=== PATIENT | male | born 1975 | race Caucasian/White ===

== ENCOUNTER → 2020-12-31 | Day surgery (SDC) | payer BC ==
[~2020-12-31] MED LIST: Acetaminophen 500 MG TAB ONE; BAMLANIVIMAB 700 MG, ETESEVIMAB 700 MG/20 ML 1,400 MG in Sodium Chloride 0.9% 250 ML 25... IVPB SCH; diphenhydrAMINE 50 MG/ML VIAL ONE
== END ==
LOC: CSHSDC 09:39
PROVIDERS: ATTEND Registered Nurse Emergency
DX: U07.1 COVID-19 (principal); Z23 Encounter for immunization
CPT/HCPCS: 96365; 96374; 99283; J1200; J7050; Q0245; U0003; U0005

== ENCOUNTER 2021-04-17 01:20 | Observation (INO) | payer BC ==
[2021-04-17 01:59] LABS: #Basophils 0.1 10x3/uL (0.0-0.2); #Eosinphils 0.3 10x3/uL (0.0-0.5); #Monocytes 0.7 10x3/uL (0.0-1.1); #Neutrophils 3.5 10x3/uL (1.5-8.4); %Basophils 0.7 % (0.0-2.0); %Eosinophils 3.3 % (0.0-6.0); %Lymphocytes 40.2 % (18.0-47.0); %Monocytes 8.8 % (0.0-10.0); %Neutrophils 46.5 % (40.0-75.0); Hemoglobin 14.6 g/dL (13.5-17.5); Mean Corpuscular HGB CONC 33.8 g/dL (32.0-36.0); Mean Corpuscular Hemoglobin 29.7 pg (27.0-33.0); Mean Corpuscular Volume 87.8 fl (81.2-95.1); Mean Platelet Volume 11.4 fl (7.4-10.4); Platelet Count 222 10x3/uL (150-450); RBC Distribution Width 14.8 % (11.5-14.5); Red Blood Cell (RBC) Count 4.92 10x6/uL (4.32-5.72); White Blood Cell (WBC) Count 7.5 10x3/uL (3.5-10.5)
[2021-04-17] MEDS ORDERED: Aspirin 325 MG TAB ONE (02:00)
[2021-04-17 02:13] LABS: ALT (SGPT) 129 U/L (8-55); AST (SGOT) 59 U/L (5-34); Albumin 4.3 g/dL (3.5-5.0); Alkaline Phosphatase 65 U/L (40-110); Anion Gap 13 mmol/L (10-20); BUN (Urea Nitrogen) 12 mg/dL (8.9-20.6); Bilirubin, Total 0.5 mg/dL (0.2-1.2); CK (CPK) 134 U/L (30-200); Calc. Creatinine Clearance 0 mL/min (70-130); Calcium 9.3 mg/dL (7.8-10.44); Carbon Dioxide 24 mmol/L (22-29); Chloride 108 mmol/L (98-107); Globulin 2.8 g/dL (2.4-3.5); Glucose 99 mg/dL (70-105); Potassium 3.7 mmol/L (3.5-5.1); Protein, Total 7.1 g/dL (6.0-8.3); Sodium 141 mmol/L (136-145)
[2021-04-17] MEDS ORDERED: HYDROcodone/Acetaminophen 5/325 mg Tablet PO PRN (03:59)
[2021-04-17] MEDS ORDERED: Ondansetron PF 4 MG/2 ML Vial IVP PRN (03:59)
[2021-04-17] MEDS ORDERED: Acetaminophen 325 MG TAB PO PRN (03:59)
[2021-04-17] MEDS ORDERED: Senokot S 8.6-50 MG TAB PO PRN (03:59)
[2021-04-17] MEDS ORDERED: Zolpidem Tartrate 5 MG TAB PO PRN (03:59)
[2021-04-17] MEDS ORDERED: Nitroglycerin 0.4 MG TAB (25 Tab Bottle) SL PRN (03:59)
[2021-04-17] MEDS ORDERED: Calcium Carbonate 500 MG ChewTAB PO PRN (03:59)
[2021-04-17] MEDS ORDERED: Colchicine 0.6 MG TAB PO PRN (04:04)
[2021-04-17] MEDS ORDERED: Famotidine/PF 20 mg/2ml Vial SLOW IVP SCH (04:15)
[2021-04-17 06:12] VITALS: BMI 30.7
[2021-04-17 06:14] LABS: Troponin I Less than 0.010 ng/mL (< 0.028)
[2021-04-17] MEDS ORDERED: TICAGRELOR 90 MG TABLET PO SCH (09:00)
[2021-04-17] MEDS ORDERED: Fish Oil 1,000 MG CAP PO SCH (09:00)
[2021-04-17] MEDS ORDERED: Enoxaparin Sodium 40 MG/0.4 ML SYRINGE SC SCH (09:00)
[2021-04-17] MEDS ORDERED: Ezetimibe 10 MG TAB PO SCH (09:00)
[2021-04-17] MEDS ORDERED: Metoprolol Tartrate 25 MG TAB PO SCH (09:00)
[2021-04-17] MEDS ORDERED: Allopurinol 100 MG TAB PO SCH (09:00)
[2021-04-17] MEDS ORDERED: Lisinopril 2.5 MG TAB PO SCH (09:00)
[2021-04-17 10:23] LABS: ALT (SGPT) 123 U/L (8-55); AST (SGOT) 57 U/L (5-34); Albumin 4.1 g/dL (3.5-5.0); Alkaline Phosphatase 60 U/L (40-110); Anion Gap 16 mmol/L (10-20); BUN (Urea Nitrogen) 14 mg/dL (8.9-20.6); Bilirubin, Total 0.5 mg/dL (0.2-1.2); Calc. Creatinine Clearance 110 mL/min (70-130); Carbon Dioxide 21 mmol/L (22-29); Cardiac Risk 6.5 (Less than 4.5); Chloride 107 mmol/L (98-107); Cholesterol 202 mg/dl (< 200 Desired); Glucose 124 mg/dL (70-105); HDL Cholesterol 31 mg/dL (>60 Neg Risk); Potassium 3.7 mmol/L (3.5-5.1); Protein, Total 7.1 g/dL (6.0-8.3); Sodium 140 mmol/L (136-145); Triglycerides 611 mg/dL (Less than 150)
[2021-04-17 10:27] LABS: LDL Cholesterol, Calculated 49 mg/dL
[2021-04-17] MEDS ORDERED: FLU VACC QS2021-22(6MOS UP)/PF 60 MCG/0.5 ML SYRINGE IM ONE (11:00)
[2021-04-17 16:37] VITALS: BP 108/66; TEMP 97.5
[2021-04-17] MEDS ORDERED: Famotidine 20 MG TAB PO SCH (21:00)
[2021-04-18] MEDS ORDERED: Aspirin Chewable 81 MG TAB PO SCH (09:00)
== END 2021-04-17 20:07 | disposition home or self-care (01) ==
LOC: CSHERS 01:20 → INTOOBSV 01:21 → CSHERHOLD 01:21 → CSHTELE 01:22
PROVIDERS: ADMIT Student in an Organized Health Care Education/Training Program; ATTEND Nurse Practitioner Family
DX: R07.89 Other chest pain (principal); I25.2 Old myocardial infarction; R74.01 Elevation of levels of liver transaminase levels; K76.0 Fatty (change of) liver, not elsewhere classified; E78.5 Hyperlipidemia, unspecified; I13.10 Hypertensive heart and chronic kidney disease without heart failure, with stage 1 through stage 4 chronic kidney disease, or unspecified chronic kidney disease; N18.2 Chronic kidney disease, stage 2 (mild); M10.9 Gout, unspecified; Z86.16 Personal history of COVID-19; Z79.82 Long term (current) use of aspirin; Z79.02 Long term (current) use of antithrombotics/antiplatelets; Z79.899 Other long term (current) drug therapy; I45.10 Unspecified right bundle-branch block
CPT/HCPCS: 36415; 71045; 76705; 80053; 80061; 82550; 83690; 84484; 85025; 93005; 93010; 96372; 96374; G0378; J1650; S0028

== ENCOUNTER 2022-02-12 08:22 | Observation (INO) | payer BC ==
[2022-02-12 09:21] LABS: #Monocytes 0.9 10x3/uL (0.0-1.1); %Basophils 0.1 % (0.0-2.0); %Eosinophils 0.1 % (0.0-6.0); %Lymphocytes 14.5 % (18.0-47.0); %Monocytes 5.7 % (0.0-10.0); %Neutrophils 78.9 % (40.0-75.0); Hemoglobin 16.1 g/dL (13.5-17.5); Mean Corpuscular HGB CONC 34.3 g/dL (32.0-36.0); Mean Corpuscular Hemoglobin 30.3 pg (27.0-33.0); Mean Corpuscular Volume 88.5 fl (81.2-95.1); Platelet Count 272 10x3/uL (150-450); RBC Distribution Width 13.2 % (11.5-14.5); Red Blood Cell (RBC) Count 5.31 10x6/uL (4.32-5.72); White Blood Cell (WBC) Count 15.2 10x3/uL (3.5-10.5)
[2022-02-12 09:25] LABS: ALT (SGPT) 67 U/L (8-55); AST (SGOT) 26 U/L (5-34); Albumin 4.4 g/dL (3.5-5.0); Alkaline Phosphatase 70 U/L (40-110); Anion Gap 17 mmol/L (10-20); BUN (Urea Nitrogen) 18 mg/dL (8.9-20.6); Bilirubin, Total 0.7 mg/dL (0.2-1.2); Calc. Creatinine Clearance 0 mL/min (70-130); Calcium 9.3 mg/dL (7.8-10.44); Carbon Dioxide 20 mmol/L (22-29); Chloride 105 mmol/L (98-107); Estimated GFR 105; Globulin 3.4 g/dL (2.4-3.5); Glucose 158 mg/dL (70-105); Potassium 4.7 mmol/L (3.5-5.1); Protein, Total 7.8 g/dL (6.0-8.3); Sodium 137 mmol/L (136-145)
[2022-02-12 11:23] VITALS: BMI 32.1
[2022-02-12 11:38] LABS: Magnesium 2.5 mg/dL (1.6-2.6); Phosphorus 2.7 mg/dL (2.3-4.7)
[2022-02-12 13:50] LABS: SARS-CoV-2 NAA Rapid Test Not Detected (NotDetected)
[2022-02-12 15:53] LABS: Troponin I Less than 0.010 ng/mL (< 0.028)
[2022-02-12 20:30] LABS: HBCM Index 0.07 S/CO (0-0.79); HBSAg Index 0.31 S/CO (0-0.99); Hep A IgM AB Non-Reactive (NonReactive); Hep A IgM S/CO 0.16 S/CO (0-0.79); Hep B Surf Ag Non-Reactive S/CO (NonReactive); Hep C IgG Ab Non-Reactive (NonReactive); Hep C Index 0.14 S/CO (0-0.79); Hepatitis B Core IgM Abs Non-Reactive (NonReactive)
[2022-02-12] MEDS: Famotidine 20 MG TAB PO SCH (20:53)
[2022-02-13 05:04] LABS: ALT (SGPT) 51 U/L (8-55); AST (SGOT) 16 U/L (5-34); Albumin 4.1 g/dL (3.5-5.0); Alkaline Phosphatase 60 U/L (40-110); Anion Gap 16 mmol/L (10-20); BUN (Urea Nitrogen) 20 mg/dL (8.9-20.6); Bilirubin, Total 0.5 mg/dL (0.2-1.2); Calc. Creatinine Clearance 144 mL/min (70-130); Calcium 9.3 mg/dL (7.8-10.44); Carbon Dioxide 21 mmol/L (22-29); Chloride 105 mmol/L (98-107); Estimated GFR 103; Globulin 3.4 g/dL (2.4-3.5); Glucose 124 mg/dL (70-105); Potassium 4.3 mmol/L (3.5-5.1); Protein, Total 7.5 g/dL (6.0-8.3); Sodium 138 mmol/L (136-145)
[2022-02-13 05:18] LABS: #Neutrophils 14.5 10x3/uL (1.5-8.4); %Basophils 0.2 % (0.0-2.0); %Eosinophils 0.1 % (0.0-6.0); %Lymphocytes 11.8 % (18.0-47.0); %Monocytes 5.4 % (0.0-10.0); %Neutrophils 81.5 % (40.0-75.0); Hemoglobin 15.8 g/dL (13.5-17.5); Mean Corpuscular HGB CONC 33.8 g/dL (32.0-36.0); Mean Corpuscular Hemoglobin 29.7 pg (27.0-33.0); Mean Corpuscular Volume 87.8 fl (81.2-95.1); Mean Platelet Volume 11.3 fl (7.4-10.4); Platelet Count 315 10x3/uL (150-450); RBC Distribution Width 13.5 % (11.5-14.5); Red Blood Cell (RBC) Count 5.32 10x6/uL (4.32-5.72); White Blood Cell (WBC) Count 17.7 10x3/uL (3.5-10.5)
[2022-02-13] MEDS: TICAGRELOR 90 MG TABLET PO SCH ×2 (08:59→20:18)
[2022-02-13] MEDS: Ezetimibe 10 MG TAB PO SCH (08:59)
[2022-02-13] MEDS: Lisinopril 20 MG TAB PO SCH (08:59)
[2022-02-13] MEDS: Aspirin 81 mg Enteric Coated Tablet PO SCH (08:59)
[2022-02-13] MEDS: Famotidine 20 MG TAB PO SCH ×2 (08:59→20:18)
[2022-02-13] MEDS: Allopurinol 300 MG TAB PO SCH (08:59)
[2022-02-13] MEDS: Colchicine 0.6 MG TAB PO SCH ×2 (09:10→20:18)
[2022-02-13] MEDS: Icosapent Ethyl 1 GM CAPSULE PO SCH ×2 (09:10→20:18)
[2022-02-13 11:12] LABS: CRP (Inflammatory) 4.03 mg/dL (= or < 0.5); Uric Acid 5.9 mg/dL (3.5-7.2)
[2022-02-13 11:34] LABS: Bilirubin Neg (Negative); Blood, Urine Negative (Negative); Clarity Clear (Clear); Glucose, Urine (Dipstick) Normal (Negative); Ketone, Urine Negative (Negative); Leukocyte Negative (Negative); Nitrite Negative (Negative); Protein, Urine (Dipstick) 15 mg/dl (Neg-Trace)
[2022-02-13 11:37] LABS: Urine Culture Reflex No No
[2022-02-13 11:42] LABS: Bacteria/HPF Rare-Few HPF (None Seen); RBC/HPF 0-3 HPF (0-3); Squamous Epithelial 0-3 HPF (0-3); WBC/HPF 0-3 HPF (0-3)
[2022-02-13] MEDS ORDERED: Lidocaine 1% 20 ML MDV SC SCH (11:45)
[2022-02-13 15:58] LABS: BF Color Yellow; Body Fluid Source Synovial Fluid; Clarity Hazy (Clear); Tube # EDTA
[2022-02-13 16:00] LABS: BF Segmented Neutrophils 86 %; Cell Count Non Hematic 12 %; Lymphocytes 2 %
[2022-02-14 06:07] LABS: #Basophils 0.1 10x3/uL (0.0-0.2); #Neutrophils 12.5 10x3/uL (1.5-8.4); %Basophils 0.4 % (0.0-2.0); %Eosinophils 0.2 % (0.0-6.0); %Lymphocytes 16.9 % (18.0-47.0); %Monocytes 6.1 % (0.0-10.0); %Neutrophils 75.2 % (40.0-75.0); Mean Corpuscular HGB CONC 34.3 g/dL (32.0-36.0); Mean Corpuscular Hemoglobin 30.4 pg (27.0-33.0); Mean Corpuscular Volume 88.8 fl (81.2-95.1); Mean Platelet Volume 10.8 fl (7.4-10.4); Platelet Count 348 10x3/uL (150-450); RBC Distribution Width 13.5 % (11.5-14.5); Red Blood Cell (RBC) Count 5.26 10x6/uL (4.32-5.72); White Blood Cell (WBC) Count 16.6 10x3/uL (3.5-10.5)
[2022-02-14 06:24] LABS: ALT (SGPT) 85 U/L (8-55); AST (SGOT) 44 U/L (5-34); Albumin 3.9 g/dL (3.5-5.0); Alkaline Phosphatase 65 U/L (40-110); Anion Gap 15 mmol/L (10-20); BUN (Urea Nitrogen) 25 mg/dL (8.9-20.6); Bilirubin, Total 0.4 mg/dL (0.2-1.2); Calc. Creatinine Clearance 137 mL/min (70-130); Calcium 8.9 mg/dL (7.8-10.44); Carbon Dioxide 22 mmol/L (22-29); Chloride 105 mmol/L (98-107); Estimated GFR 96; Globulin 3.1 g/dL (2.4-3.5); Glucose 125 mg/dL (70-105); Magnesium 2.2 mg/dL (1.6-2.6); Potassium 4.1 mmol/L (3.5-5.1); Sodium 138 mmol/L (136-145)
[2022-02-14 07:56] LABS: CRP (Inflammatory) 1.54 mg/dL (= or < 0.5)
[2022-02-14] MEDS: Colchicine 0.6 MG TAB PO SCH (08:33)
[2022-02-14] MEDS: Ezetimibe 10 MG TAB PO SCH (08:33)
[2022-02-14] MEDS: Allopurinol 300 MG TAB PO SCH (08:33)
[2022-02-14] MEDS: Icosapent Ethyl 1 GM CAPSULE PO SCH (08:34)
[2022-02-14] MEDS: Lisinopril 20 MG TAB PO SCH (08:34)
[2022-02-14] MEDS: Famotidine 20 MG TAB PO SCH (08:34)
[2022-02-14] MEDS: Aspirin 81 mg Enteric Coated Tablet PO SCH (08:35)
[2022-02-14] MEDS: TICAGRELOR 90 MG TABLET PO SCH (08:35)
[2022-02-14 12:03] VITALS: BP 125/76; TEMP 97.7
== END 2022-02-14 14:43 | disposition home or self-care (01) ==
LOC: CSHERS 08:22 → CSHTELE 11:14
PROVIDERS: ADMIT Family Medicine; ATTEND Family Medicine
DX: M25.461 Effusion, right knee (principal); R07.89 Other chest pain; M25.561 Pain in right knee; M10.9 Gout, unspecified; M79.10 Myalgia, unspecified site; R50.9 Fever, unspecified; D72.829 Elevated white blood cell count, unspecified; R53.1 Weakness; I10 Essential (primary) hypertension; E78.5 Hyperlipidemia, unspecified; I25.10 Atherosclerotic heart disease of native coronary artery without angina pectoris; I25.2 Old myocardial infarction; Z20.822 Contact with and (suspected) exposure to COVID-19; Z79.82 Long term (current) use of aspirin; Z79.899 Other long term (current) drug therapy; Z98.890 Other specified postprocedural states
CPT/HCPCS: 36415; 71045; 80053; 80074; 81001; 83036; 83735; 83880; 84100; 84145; 84443; 84484; 84550; 85025; 85652; 86140; 87040; 87070; 87205; 87633; 89051; 89060; 93005; 93306; G0378

== ENCOUNTER 2022-04-15 08:55 | Emergency (ER) | payer BC ==
[2022-04-15] MEDS ORDERED: predniSONE 20 MG TAB ONE (09:34)
== END 2022-04-15 10:53 | disposition home or self-care (01) ==
LOC: CSHERS 08:55
DX: M10.9 Gout, unspecified (principal); M17.11 Unilateral primary osteoarthritis, right knee; I10 Essential (primary) hypertension; I25.10 Atherosclerotic heart disease of native coronary artery without angina pectoris
CPT/HCPCS: J7512

== ENCOUNTER 2022-05-25 05:33 | Emergency (ER) | payer BC ==
[2022-05-25 07:11] LABS: ALT (SGPT) 118 U/L (8-55); AST (SGOT) 92 U/L (5-34); Alkaline Phosphatase 75 U/L (40-110); Anion Gap 18 mmol/L (10-20); BUN (Urea Nitrogen) 9 mg/dL (8.9-20.6); Bilirubin, Total 0.8 mg/dL (0.2-1.2); Calc. Creatinine Clearance 0 mL/min (70-130); Calcium 9.4 mg/dL (7.8-10.44); Carbon Dioxide 18 mmol/L (22-29); Chloride 106 mmol/L (98-107); Estimated GFR 90; Globulin 3.4 g/dL (2.4-3.5); Glucose 114 mg/dL (70-105); Protein, Total 7.4 g/dL (6.0-8.3); Sodium 138 mmol/L (136-145)
[2022-05-25 07:31] LABS: #Basophils 0.1 10x3/uL (0.0-0.2); #Eosinphils 0.3 10x3/uL (0.0-0.5); #Monocytes 0.7 10x3/uL (0.0-1.1); #Neutrophils 6.7 10x3/uL (1.5-8.4); %Eosinophils 2.8 % (0.0-6.0); %Lymphocytes 15.6 % (18.0-47.0); %Monocytes 7.9 % (0.0-10.0); Hemoglobin 16.4 g/dL (13.5-17.5); Large Platelets SLIGHT; Mean Corpuscular HGB CONC 34.9 g/dL (32.0-36.0); Mean Corpuscular Hemoglobin 30.2 pg (27.0-33.0); Mean Corpuscular Volume 86.6 fl (81.2-95.1); Mean Platelet Volume 11.1 fl (7.4-10.4); Platelet Count 206 10x3/uL (150-450); Platelet Morphology Comment Appears Adequate; RBC Distribution Width 13.8 % (11.5-14.5); Red Blood Cell (RBC) Count 5.43 10x6/uL (4.32-5.72); White Blood Cell (WBC) Count 9.3 10x3/uL (3.5-10.5)
== END 2022-05-25 07:49 | disposition home or self-care (01) ==
LOC: CSHERS 05:33
DX: J06.9 Acute upper respiratory infection, unspecified (principal); G47.30 Sleep apnea, unspecified; I25.10 Atherosclerotic heart disease of native coronary artery without angina pectoris; I10 Essential (primary) hypertension; E78.5 Hyperlipidemia, unspecified
CPT/HCPCS: 36415; 71045; 80053; 84484; 85025; 93005

== ENCOUNTER 2022-07-28 11:44 | Emergency (ER) | payer BC ==
[2022-07-28] MEDS ORDERED: Dexamethasone 10 MG/ML VIAL ONE (12:31)
[2022-07-28] MEDS ORDERED: Colchicine 0.6 MG TAB ONE (12:33)
[2022-07-28] MEDS ORDERED: Naproxen 500 MG TAB ONE (12:33)
== END 2022-07-28 12:32 | disposition home or self-care (01) ==
LOC: CSHERS 11:44
DX: M10.9 Gout, unspecified (principal); I25.10 Atherosclerotic heart disease of native coronary artery without angina pectoris; E78.5 Hyperlipidemia, unspecified; I10 Essential (primary) hypertension
CPT/HCPCS: 96372; 99283; J1100

== ENCOUNTER 2022-10-28 23:56 | Emergency (ER) | payer BC ==
[2022-10-29] MEDS ORDERED: Aspirin Chewable 81 MG TAB ONE (00:33)
[2022-10-29 00:43] LABS: #Basophils 0.1 10x3/uL (0.0-0.2); #Eosinphils 0.3 10x3/uL (0.0-0.5); #Monocytes 0.6 10x3/uL (0.0-1.1); #Neutrophils 4.4 10x3/uL (1.5-8.4); %Basophils 0.6 % (0.0-2.0); %Eosinophils 3.5 % (0.0-6.0); %Lymphocytes 36.3 % (18.0-47.0); %Monocytes 7.5 % (0.0-10.0); Hemoglobin 17.3 g/dL (13.5-17.5); Mean Corpuscular HGB CONC 34.7 g/dL (32.0-36.0); Mean Corpuscular Hemoglobin 30.4 pg (27.0-33.0); Mean Corpuscular Volume 87.7 fl (81.2-95.1); Mean Platelet Volume 11.7 fl (7.4-10.4); Platelet Count 207 10x3/uL (150-450); RBC Distribution Width 13.6 % (11.5-14.5); Red Blood Cell (RBC) Count 5.69 10x6/uL (4.32-5.72); White Blood Cell (WBC) Count 8.5 10x3/uL (3.5-10.5)
[2022-10-29 00:53] LABS: ALT (SGPT) 200 U/L (8-55); AST (SGOT) 115 U/L (5-34); Albumin 4.3 g/dL (3.5-5.0); Alkaline Phosphatase 75 U/L (40-110); Anion Gap 15 mmol/L (10-20); BUN (Urea Nitrogen) 10 mg/dL (8.9-20.6); Bilirubin, Total 0.6 mg/dL (0.2-1.2); Calc. Creatinine Clearance 0 mL/min (70-130); Calcium 9.9 mg/dL (7.8-10.44); Carbon Dioxide 24 mmol/L (22-29); Chloride 105 mmol/L (98-107); Estimated GFR 98; Globulin 3.1 g/dL (2.4-3.5); Glucose 98 mg/dL (70-105); Potassium 4.1 mmol/L (3.5-5.1); Protein, Total 7.4 g/dL (6.0-8.3); Sodium 140 mmol/L (136-145)
== END 2022-10-29 02:08 | disposition home or self-care (01) ==
LOC: CSHERS 23:56
DX: H66.91 Otitis media, unspecified, right ear (principal); I10 Essential (primary) hypertension; I25.10 Atherosclerotic heart disease of native coronary artery without angina pectoris; E78.5 Hyperlipidemia, unspecified; Z79.82 Long term (current) use of aspirin; Z79.899 Other long term (current) drug therapy
CPT/HCPCS: 71045; 80053; 83735; 84484; 85025; 93005

== ENCOUNTER 2023-01-22 10:26 | Emergency (ER) | payer BC ==
[2023-01-22] MEDS ORDERED: Naproxen 500 MG TAB ONE (12:17)
[2023-01-22] MEDS ORDERED: Dexamethasone 4 MG TAB ONE (12:17)
== END 2023-01-22 12:52 | disposition home or self-care (01) ==
LOC: CSHERS 10:26
DX: M10.9 Gout, unspecified (principal); E78.5 Hyperlipidemia, unspecified; I10 Essential (primary) hypertension; I25.10 Atherosclerotic heart disease of native coronary artery without angina pectoris
CPT/HCPCS: 99283; J8540

== ENCOUNTER 2023-11-10 07:39 | Day surgery (SDC) | payer BC ==
[2023-11-06 14:54] VITALS: BMI 32.7
[2023-11-10] MEDS ORDERED: Labetalol HCl 100 MG/20 ML VIAL ONE (08:31)
[2023-11-10] MEDS ORDERED: EPINEPHrine 1 MG/ML VIAL ONE (08:33)
[2023-11-10] MEDS ORDERED: Vancomycin 1 GM VIAL ONE (08:33)
[2023-11-10] MEDS ORDERED: CEFAZOLIN 2 GM VIAL ONE (08:33)
[2023-11-10] MEDS ORDERED: Rocuronium Bromide 10 MG/ML (10ML VIAL) ONE (09:24)
[2023-11-10] MEDS ORDERED: Lidocaine 1% PF 5 ML VIAL ONE (09:24)
[2023-11-10] MEDS ORDERED: Dexamethasone 20 MG/5 ML VIAL ONE (09:24)
[2023-11-10] MEDS ORDERED: Midazolam HCl 2 mg/2 ml Vial ONE (09:24)
[2023-11-10] MEDS ORDERED: PROPOFOL 20 ML ONE ×2 (09:24→10:00)
[2023-11-10] MEDS ORDERED: Fentanyl 250 MCG/5 ML VIAL ONE (09:24)
[2023-11-10] MEDS ORDERED: Ondansetron PF 4 MG/2 ML Vial ONE (09:24)
[2023-11-10] MEDS ORDERED: PHENYLEPHRINE-NS 100 MCG/ML 10 ML SYRINGE ONE ×2 (10:06→10:08)
== END 2023-11-10 13:10 | disposition home or self-care (01) ==
LOC: CSHSDC 07:39
PROVIDERS: ATTEND Otolaryngology Otolaryngic Allergy
PROC: 00HE0MZ Insertion of Neurostimulator Lead into Cranial Nerve, Open Approach (ICD-10-PCS; principal; 2023-11-10)
PROC: 0JH60MZ Insertion of Stimulator Generator into Chest Subcutaneous Tissue and Fascia, Open Approach (ICD-10-PCS; principal; 2023-11-10)
DX: G47.33 Obstructive sleep apnea (adult) (pediatric) (principal); I10 Essential (primary) hypertension; I25.10 Atherosclerotic heart disease of native coronary artery without angina pectoris; I25.2 Old myocardial infarction; E78.5 Hyperlipidemia, unspecified; M10.9 Gout, unspecified; Z79.899 Other long term (current) drug therapy
CPT/HCPCS: 70360; 71046; C1787; C1820; C1898; J0171; J1100; J2250; J2405; J2704; J3010; J3370

== ENCOUNTER 2024-01-05 09:46 | Emergency (ER) | payer BC ==
[2024-01-05] MEDS ORDERED: Ketorolac Tromethamine 30 MG (1 mL) VIAL ONE (10:24)
== END 2024-01-05 11:50 | disposition home or self-care (01) ==
LOC: CSHERS 09:46 → MERGE 09:46 → CSHERS 11:50
DX: S20.224A Contusion of middle back wall of thorax, initial encounter (principal); S20.419A Abrasion of unspecified back wall of thorax, initial encounter; W55.22XA Struck by cow, initial encounter; I10 Essential (primary) hypertension
CPT/HCPCS: 70450; 71260; 72125; 96374; J1885